=== PATIENT | female | born 1950 | race Caucasian/White ===

== ENCOUNTER 2017-10-29 02:36 | Emergency (ER) | payer MEDICARE ==
[2017-10-29 03:25] LABS: Hematocrit 41.1 % (30.3-42.9); Hemoglobin 14.1 gm/dl (10.1-14.3); Mean Corpuscular HGB Conc 34 % (30-34); Mean Corpuscular Hemoglobin 30 pg (28-32); Mean Corpuscular Volume 88 fl (79-97); Platelet Count 372 K/mm3 (140-440); Red Blood Count 4.68 M/mm3 (3.65-5.03); Red Cell Distribution Width 12.6 % (13.2-15.2)
[2017-10-29 03:48] LABS: Alanine Aminotransferase 13 units/L (7-56); Albumin 4.3 g/dL (3.9-5); BUN/Creatinine Ratio 18; Blood Urea Nitrogen 11 mg/dL (7-17); Calcium 8.9 mg/dL (8.4-10.2); Hemolysis Index 9
[2017-10-29 05:52] LABS: Bacteria,Urine 1+ /HPF (Negative); Bilirubin,Urine NEG (Negative); Blood,Urine MOD (Negative); Color,Urine Straw (Yellow); Mucus,Urine FEW /HPF; Nitrite,Urine NEG (Negative); Urobilinogen,Urine < 2.0 mg/dL (<2.0)
--- NOTE | 2017-10-29 06:31 | Emergency Department Report ---
ED Abdominal Pain HPI - General Chief Complaint: Abdominal Pain Stated Complaint: FEVER, ABD PAIN Time Seen by Provider: 10/29/17 06:04 Source: family Mode of arrival: Ambulatory Limitations: Language Barrier (patient brought family friend at the bedside who provided Barbadian interpretation) - History of Present Illness Initial Comments: Pain is so severe that she is unable to wait for appt on Saturday with surgeon. "She must have it taken out today." MD Complaint: abdominal pain -: week(s) (several weeks) Location: epigastric Radiation: none Migration to: no migration Severity: severe Quality: cramping, aching Consistency: intermittent Improves With: other (Tylenol) Worsens With: nothing Context: other (diagnosed with cholelithiasis referred to surgeon Dr. Holly by PCP Dr. Gaona appt this Saturday, came to ED for to have gallbladder removed) Treatments Prior to Arrival: other (hx of UTI, finished abx 3 days ago) - Related Data Previous Rx's Medication Instructions Recorded Last Taken Type HYDROcodone/APAP 5-325 [[place] 1 each PO Q6HR PRN #15 tablet 10/29/17 Unknown Rx 5/325] Promethazine [Phenergan TAB] 25 mg PO Q6HR PRN #16 tab 10/29/17 Unknown Rx Allergies Allergy/AdvReac Type Severity Reaction Status Date / Time No Known Allergies Allergy Unverified 10/29/17 02:48 ED Review of Systems ROS: Stated complaint: FEVER, ABD PAIN Other details as noted in HPI Comment: All other systems reviewed and negative Constitutional: fever Gastrointestinal: abdominal pain ED Past Medical Hx - Past Medical History Previous Medical History?: Yes Hx Hypertension: Yes Additional medical history: gall stones, high cholesterol - Surgical History Past Surgical History?: Yes Additional Surgical History: stents - Social History Smoking Status: Never Smoker Substance Use Type: None - Medications Home Medications: Home Medications Medication Instructions Recorded Confirmed Last Taken Type HYDROcodone/APAP 5-325 [[place] 1 each PO Q6HR PRN #15 tablet 10/29/17 Unknown Rx 5/325] Promethazine [Phenergan TAB] 25 mg PO Q6HR PRN #16 tab 10/29/17 Unknown Rx ED Physical Exam - General Limitations: Language Barrier (family friend provided Barb[place] interpretation) General appearance: alert, in no apparent distress - Head Head exam: Present: atraumatic, normocephalic - Eye Eye exam: Present: normal appearance - ENT ENT exam: Present: normal orophraynx, mucous membranes moist - Neck Neck exam: Present: normal inspection. Absent: meningismus - Respiratory Respiratory exam: Present: normal lung sounds bilaterally. Absent: respiratory distress, wheezes, rales, rhonchi, stridor - Cardiovascular Cardiovascular Exam: Present: regular rate, normal rhythm, normal heart sounds. Absent: bradycardia, tachycardia, systolic murmur, diastolic murmur, rubs, gallop - GI/Abdominal GI/Abdominal exam: Present: soft, normal bowel sounds. Absent: distended, tenderness, guarding, rebound, rigid - Extremities Exam Extremities exam: Present: normal inspection, full ROM. Absent: tenderness - Back Exam Back exam: Present: normal inspection - Neurological Exam Neurological exam: Present: alert, oriented X3 - Psychiatric Psychiatric exam: Present: normal affect, normal mood - Skin Skin exam: Present: warm, dry, intact, normal color. Absent: rash ED Course Vital Signs 10/29/17 10/29/17 10/29/17 02:44 05:10 05:20 Temperature 98.7 F Pulse Rate 77 Respiratory 17 Rate Blood Pressure 143/79 140/79 140/79 O2 Sat by Pulse 99 96 Oximetry 10/29/17 10/29/17 10/29/17 05:25 05:30 05:46 Temperature Pulse Rate Respiratory 16 Rate Blood Pressure 141/64 141/64 O2 Sat by Pulse 99 100 97 Oximetry 10/29/17 10/29/17 10/29/17 06:00 06:16 06:31 Temperature Pulse Rate Respiratory Rate Blood Pressure 126/69 126/69 114/62 O2 Sat by Pulse 96 95 95 Oximetry 10/29/17 10/29/17 07:26 07:52 Temperature 98.2 F Pulse Rate 71 Respiratory 20 20 Rate Blood Pressure 135/70 O2 Sat by Pulse 98 98 Oximetry ED Medical Decision Making - Lab Data Result diagrams: 10/29/17 03:05 10/29/17 03:05 Vital Signs - 24 hr 10/29/17 10/29/17 10/29/17 02:44 05:10 05:20 Temperature 98.7 F Pulse Rate 77 Respiratory 17 Rate Blood Pressure 143/79 140/79 140/79 O2 Sat by Pulse 99 96 Oximetry 02/20/18 05:25 Temperature Pulse Rate Respiratory 16 Rate Blood Pressure O2 Sat by Pulse 99 Oximetry Laboratory Results - last 24 hr 10/29/17 10/29/17 10/29/17 03:05 03:05 05:18 WBC 10.5 RBC 4.68 Hgb 14.1 Hct 41.1 MCV 88 MCH 30 MCHC 34 RDW 12.6 L Plt Count 372 Lymph # Vp Account Director Sodium 138 Potassium 4.1 Chloride 103.6 Carbon Dioxide 23 Anion Gap 16 BUN 11 Creatinine 0.6 L Estimated GFR > 60 BUN/Creatinine Ratio 18 Glucose 127 H Calcium 8.9 Total Bilirubin 0.50 AST 13 ALT 13 Alkaline Phosphatase 67 Total Protein 7.5 Albumin 4.3 Albumin/Globulin Ratio 1.3 Urine Color Straw Urine Turbidity Clear Urine pH 7.0 Ur Specific [place] 1.005 Urine Protein 30 mg/dl Urine Glucose (UA) Neg Urine Ketones Neg Urine Blood Mod Urine Nitrite Neg Urine Bilirubin Neg Urine Urobilinogen < 2.0 Ur Leukocyte Esterase Tr Urine WBC (Auto) 3.0 Urine RBC (Auto) 2.0 U Epithel Cells (Auto) 2.0 Urine Bacteria (Auto) 1+ Urine Mucus Few Vital Signs - 24 hr 10/29/17 10/29/17 10/29/17 02:44 05:10 05:20 Temperature 98.7 F Pulse Rate 77 Respiratory 17 Rate Blood Pressure 143/79 140/79 140/79 O2 Sat by Pulse 99 96 Oximetry 10/29/17 10/29/17 10/29/17 05:25 05:30 05:46 Temperature Pulse Rate Respiratory 16 Rate Blood Pressure 141/64 141/64 O2 Sat by Pulse 99 100 97 Oximetry 10/29/17 10/29/17 10/29/17 06:00 06:16 06:31 Temperature Pulse Rate Respiratory Rate Blood Pressure 126/69 126/69 114/62 O2 Sat by Pulse 96 95 95 Oximetry 10/29/17 10/29/17 07:26 07:52 Temperature 98.2 F Pulse Rate 71 Respiratory 20 20 Rate Blood Pressure 135/70 O2 Sat by Pulse 98 98 Oximetry - Medical Decision Making Ms. Ruiz presents with biliary colic. US confirmed multiple gallstones. No evidence of cholelithiasis. NO fever, normal WBC, negative Anna's sign. She is currently pain free after Tylenol taken prior to arrival. I consulted Dr. Ohlly general surgeon. He explained that elective surgery would not be performed for several days even if he admitted the patient to hospital. He recommended calling the office for an earlier appt than Saturday. I used language line popcorn machine operator [phone] to explain to Ms. Ruiz why the surgery would be performed today. She did understand. Pain, vomiting and fever reported by patient and family friend. Rx: promethazine and [place] I discussed case with Juan, health care provider in Dr. Gaona's office who referred patient to Dr. Holly. dc'd home in good condition Critical care attestation.: If time is entered above; I have spent that time in minutes in the direct care of this critically ill patient, excluding procedure time. ED Disposition Clinical Impression: Cholelithiasis, Biliary colic Disposition: TO HOME OR SELFCARE Is pt being admited?: No Does the pt Need Aspirin: No Condition: Stable Instructions: Biliary Colic (ED) Prescriptions: HYDROcodone/APAP 5-325 [[place] 5/325] 1 each PO Q6HR PRN #15 tablet PRN Reason: Pain Promethazine [Phenergan TAB] 25 mg PO Q6HR PRN #16 tab PRN Reason: Nausea Referrals: ELIOT HOLLY MD [Staff Physician] - KYLE Time of Disposition: 08:57
[2017-10-29 07:40] LABS: Total Cells Counted 100
[2017-10-29 07:41] LABS: Anisocytosis 1+; Eosinophils % (Manual) 0 % (0.0-4.3); Platelet Estimate Cons
--- NOTE | 2017-10-29 07:57 | Ultrasound Report ---
ULTRASOUND ABDOMEN COMPLETE: TECHNIQUE: Transabdominal ultrasound with color Doppler interrogation. HISTORY: Gallstones, fever, abdominal pain. COMPARISON: none. FINDINGS: LIVER: Normal. BILIARY SYSTEM: There are multiple shadowing gallstones within the gallbladder measuring up to 1.4 cm. There is also moderate sludge present. No evidence for gallbladder wall thickening, distention or surrounding fluid. The CBD measures 3.1 mm. PANCREAS: Normal. SPLEEN: Normal. 7.3 cm. KIDNEYS: The right kidney is slightly echogenic and atrophic measuring 8.6 cm. The left kidney is within normal limits measuring 10.9 cm. No focal renal lesion or hydronephrosis. AORTA/IVC: Normal. ASCITES: None. IMPRESSION: Cholelithiasis. No convincing findings of acute cholecystitis. Slightly atrophic and echogenic right kidney.
[2017-10-29 09:23] VITALS: BP 130/78
== END 2017-10-29 10:43 | disposition home or self-care (01) ==
LOC: ED 02:36
DX: K80.70 Calculus of gallbladder and bile duct without cholecystitis without obstruction (principal); I10 Essential (primary) hypertension; E78.00 Pure hypercholesterolemia, unspecified
CPT/HCPCS: 36415; 76700; 80053; 81001; 85007; 85025

== ENCOUNTER 2017-11-14 07:27 | Day surgery (SDC) | payer MEDICARE, OTHER ==
[~2017-11-14 07:27] MED LIST: ANCEF/STERILE WATER 2 GM/20 ML 2 GM/20 ML SYRINGE IV NR; MARCAINE-EPI 0.5%-1:200,000 INFILTRATI ONE
[2017-11-14] MEDS ORDERED: DILAUDID ONE (08:41)
[2017-11-14] MEDS ORDERED: DIPRIVAN 10 MG/ML IV ONE (08:42)
[2017-11-14] MEDS ORDERED: ZEMURON IV ONE (08:43)
[2017-11-14] MEDS ORDERED: XYLOCAINE MPF 2% ONE (08:43)
[2017-11-14] MEDS ORDERED: MARCAINE 0.5% 0 ML INFILTRATI ONE (09:09)
[2017-11-14] MEDS ORDERED: NACL BACTERIOSTATIC INFILTRATI ONE (09:26)
--- NOTE | 2017-11-14 09:28 | Anesthesia Consultation ---
Anesthesia Consult and Med Hx Date of service: 11/14/17 - Airway Anesthetic Teeth Evaluation: Dentures ROM Head & Neck: Adequate Mental/Hyoid Distance: Adequate Mallampati Class: Class II Intubation Access Assessment: Probably Good - Pulmonary Exam CTA: Yes - Cardiac Exam Cardiac Exam: RRR - Pre-Operative Health Status ASA Pre-Surgery Classification: ASA2 Proposed Anesthetic Plan: General - Cardiovascular System Hx Hypertension: Yes - Central Nervous System Hx Psychiatric Problems: No - Other Systems Hx Alcohol Use: No Hx Substance Use: No Hx Cancer: No - Additional Comments Anesthesia Medical History Comments: Informed consent obtained. KETTY Shields helped translate
--- NOTE | 2017-11-14 09:28 | Anesthesia Day of Surgery ---
Anesthesia Day of Surgery - Day of Surgery Patient Examined: Yes Patient H&P Reviewed: Yes Patient is NPO: Yes Beta Blockers: Yes Cardiac Clearance: Yes
[2017-11-14] MEDS ORDERED: DILAUDID IV PRN (09:29)
[2017-11-14] MEDS ORDERED: ceFAZolin 2 GM in NACL 0.9% 100 ML IV ONE (09:30)
[2017-11-14 09:49] LABS: Basophils % (Auto) 0.6 % (0.0-1.8); Eosinophils # (Auto) 0.1 K/mm3 (0.0-0.4); Eosinophils % (Auto) 0.7 % (0.0-4.3); Hematocrit 43.9 % (30.3-42.9); Hemoglobin 14.7 gm/dl (10.1-14.3); Lymphocytes # (Auto) 2.6 K/mm3 (1.2-5.4); Lymphocytes % (Auto) 32.7 % (13.4-35.0); Mean Corpuscular HGB Conc 34 % (30-34); Mean Corpuscular Hemoglobin 30 pg (28-32); Mean Corpuscular Volume 89 fl (79-97); Monocytes # (Auto) 0.5 K/mm3 (0.0-0.8); Monocytes % (Auto) 6.5 % (0.0-7.3); Platelet Count 356 K/mm3 (140-440); Red Blood Count 4.95 M/mm3 (3.65-5.03)
[2017-11-14] MEDS ORDERED: TRANSDERM-SCOP TD NR (10:00)
[2017-11-14] MEDS ORDERED: VERSED IV NR (10:00)
[2017-11-14] MEDS ORDERED: NACL 0.9% 1000 ML 1,000 ML IV SCH (10:00)
[2017-11-14] MEDS ORDERED: PEPCID IV NR (10:00)
[2017-11-14] MEDS ORDERED: ePHEDrine SULFATE ONE (10:14)
[2017-11-14 10:18] LABS: Albumin 4.6 g/dL (3.9-5); BUN/Creatinine Ratio 17; Blood Urea Nitrogen 10 mg/dL (7-17); Calcium 9.4 mg/dL (8.4-10.2); Hemolysis Index 230
[2017-11-14] MEDS ORDERED: MARCAINE-EPI 0.5%-1:200,000 INFILTRATI ONE ×3 (10:23→10:49)
[2017-11-14 10:24] LABS: Alanine Aminotransferase 19 units/L (7-56)
[2017-11-14] MEDS ORDERED: ZOFRAN ONE (10:30)
[2017-11-14] MEDS ORDERED: ROBINUL ONE (10:31)
[2017-11-14] MEDS ORDERED: NEOSTIGMINE ONE (10:31)
--- NOTE | 2017-11-14 10:59 | Discharge Summary ---
Short Stay Discharge Plan Activity: other (observe x 6 hrs then january d/c if stable. ice chips today. cl liq in am. solid low fat diet in 48hrs. keep dressings dry x 5 days. no lifting over 5 lbs x 2 wks) Weight Bearing Status: Partial Weight Bearing Diet: other Wound: keep clean and dry Additional Instructions: aleve I po q 6-8 hrs prn for breakthrough pain. Call if any abd pain. N or V Follow up with: ELIOT CARO MD [Staff Physician] - 7 Days
--- NOTE | 2017-11-14 11:14 | Operative Report ---
PREOPERATIVE DIAGNOSIS: Gallbladder disease. POSTOPERATIVE DIAGNOSIS: Gallbladder disease. PROCEDURE: Laparoscopic cholecystectomy. SURGEON: Ronnie Holly M.D. ENTERPRISE APPLICATION ARCHITECT: . ANESTHESIA: General. ESTIMATED BLOOD LOSS: Minimal. DRAINS: None. COMPLICATIONS: None. DESCRIPTION OF PROCEDURE: The patient was taken up to the operating room, prepped and draped in usual sterile fashion. A Veress needle was inserted and CO2 insufflation begun. A 5 mm trocar was then inserted and camera inserted. All other trocars were inserted under direct visualization. Gallbladder was then grasped at the fundus and infundibulum and retracted towards the right subphrenic space. Dissection was then carried out along the Calot's triangle. The cystic duct and artery were delineated in their entire course. Both were then doubly clipped and transected. Hook electrocautery was used to dissect the gallbladder from the overlying liver bed. Prior to complete removal, the liver bed was inspected for bleeding and some oozing noted. This was controlled with hook electrocautery. Gallbladder was then completely freed and brought out through the subxiphoid port. This area was inspected for bleeding and noted to be dry. Subxiphoid trocar was then gently reinserted. The entire right upper quadrant of the abdomen was copiously irrigated and suctioned dry. Aspirate was clear, the 5 mm trocars were removed under direct visualization. No bleeding or oozing noted. The subxiphoid trocar was then used to expel the CO2 and the trocar removed. The fascia at this site was closed with a [id number] 2-0 Vicryl suture. The skin at all port sites was closed with subcuticular 4-0 Vicryl. A 0.5% Marcaine with epinephrine was infiltrated over the areas for postoperative pain relief. The patient tolerated the procedure well and left the OR in stable condition. [facility]# [id number] DONNA/NESHA
--- NOTE | 2017-11-14 11:53 | Progress Note ---
Assessment and Plan - Patient Problems (1) S/P laparoscopic cholecystectomy Current Visit: Yes Status: Acute Plan to address problem: Patient was evaluated in office and "cleared" for surgery.Presently stable post OP in recovery. Discussed with and RN. (2) Essential hypertension Current Visit: Yes Status: Acute (3) Serum potassium elevated Current Visit: Yes Status: Acute Plan to address problem: serum potassium mildly elevated with normal renal function and on no K+ supplementation or potassium retaining meds.Awaiting f/u K+ level.If comes back normal,she can go home. Subjective Date of service: 11/14/17 Interval history: s/p laparoscopic surgery in recovery,stable,K+ was elavated,hence consultation by for adjustment of meds,repeat BMP pending. Objective Vital Signs Temp Pulse Resp BP Pulse Ox 11/14/17 11:37 23 11/14/17 11:30 63 23 123/63 100 11/14/17 11:15 72 19 126/70 97 11/14/17 11:10 71 25 H 130/70 98 11/14/17 11:05 98.5 F 71 24 125/70 99 11/14/17 09:55 98.1 F 67 20 153/81 97 11/14/17 08:48 98.1 F 67 20 153/81 97 - Physical Examination General: Appears Well HEENT: Positive: PERRL Neck: Positive: neck supple Cardiac: Positive: Reg Rate and Rhythm Lungs: Positive: clear to auscultation Neuro: Positive: Grossly Intact Abdomen: Positive: Unremarkable (small fresh scar over abdomen from laparoscopy. ) - Labs and Meds Cardiac Enzymes 11/14/17 Range/Units 09:30 AST 32 (5-40) units/L CBC 11/14/17 Range/Units 09:30 WBC 7.9 (4.5-11.0) K/mm3 RBC 4.95 (3.65-5.03) M/mm3 Hgb 14.7 H (10.1-14.3) gm/dl Hct 43.9 H (30.3-42.9) % Plt Count 356 (140-440) K/mm3 Lymph # 2.6 (1.2-5.4) K/mm3 [place] # 0.5 (0.0-0.8) K/mm3 Eos # 0.1 (0.0-0.4) K/mm3 Baso # 0.0 (0.0-0.1) K/mm3 Comprehensive Metabolic Panel 11/14/17 Range/Units 09:30 Sodium 136 L (137-145) mmol/L Potassium 5.8 H (3.6-5.0) mmol/L Chloride 96.9 L (98-107) mmol/L Carbon Dioxide 26 (22-30) mmol/L BUN 10 (7-17) mg/dL Creatinine 0.6 L (0.7-1.2) mg/dL Glucose 110 H (65-100) mg/dL Calcium 9.4 (8.4-10.2) mg/dL AST 32 (5-40) units/L ALT 19 (7-56) units/L Alkaline Phosphatase 70 (35-129) units/L Total Protein 8.6 H (6.3-8.2) g/dL Albumin 4.6 (3.9-5) g/dL - Telemetry EKG Rhythm: Sinus Rhythm
[2017-11-14 12:01] LABS: BUN/Creatinine Ratio 14; Blood Urea Nitrogen 10 mg/dL (7-17); Calcium 8.4 mg/dL (8.4-10.2); Hemolysis Index 15
--- NOTE | 2017-11-14 14:20 | Post Anesthesia Evaluation ---
- Post Anesthesia Evaluation Patient Participated: Yes Airway Patent: Yes Stable Respiratory Function: Yes Nausea/Vomiting: No Temp > 96.8F: Yes Pain Manageable: Yes Adequeate Hydration: Yes Anesthesia Complications: No
[2017-11-14] MEDS ORDERED: NORCO 5/325 PO ONE (17:10)
[2017-11-14 17:12] VITALS: BP 113/66
== END 2017-11-14 17:25 | disposition home or self-care (01) ==
LOC: OR 07:27
PROVIDERS: ATTEND Surgery
DX: K80.10 Calculus of gallbladder with chronic cholecystitis without obstruction (principal); E87.5 Hyperkalemia; E78.00 Pure hypercholesterolemia, unspecified; I10 Essential (primary) hypertension
CPT/HCPCS: 36415; 47562; 80048; 80053; 82150; 85025; 88304; J0690; J1170; J2405; J2704; J2710; J7030

== ENCOUNTER 2017-11-27 14:51 | Emergency (ER) | payer OTHER ==
[2017-11-27 14:59] VITALS: BP 137/71
[2017-11-27 15:31] LABS: Basophils # (Auto) 0.1 K/mm3 (0.0-0.1); Basophils % (Auto) 0.8 % (0.0-1.8); Eosinophils # (Auto) 0.1 K/mm3 (0.0-0.4); Eosinophils % (Auto) 0.9 % (0.0-4.3); Hemoglobin 14.2 gm/dl (10.1-14.3); Lymphocytes # (Auto) 3.7 K/mm3 (1.2-5.4); Lymphocytes % (Auto) 44.1 % (13.4-35.0); Mean Corpuscular HGB Conc 34 % (30-34); Mean Corpuscular Hemoglobin 30 pg (28-32); Mean Corpuscular Volume 90 fl (79-97); Monocytes # (Auto) 0.5 K/mm3 (0.0-0.8); Monocytes % (Auto) 5.9 % (0.0-7.3); Platelet Count 338 K/mm3 (140-440); Red Blood Count 4.68 M/mm3 (3.65-5.03); Red Cell Distribution Width 12.7 % (13.2-15.2)
[2017-11-27 15:44] LABS: Alanine Aminotransferase 16 units/L (7-56); Albumin 4.5 g/dL (3.9-5); BUN/Creatinine Ratio 25; Blood Urea Nitrogen 15 mg/dL (7-17); Calcium 9.6 mg/dL (8.4-10.2); Hemolysis Index 19
--- NOTE | 2017-11-27 17:31 | Emergency Department Report ---
ED Abdominal Pain HPI - General Chief Complaint: Abdominal Pain Stated Complaint: FEVER/WOUND SWOLLEN Time Seen by Provider: 11/27/17 17:21 Source: patient Mode of arrival: Ambulatory Limitations: Language Barrier - History of Present Illness Initial Comments: 67-year-old female status post laparoscopic cholecystectomy November 14 saw surgeon today he wanted her to come to the ED for worsening abdominal pain possible fever he is requesting laboratory studies and CT abdomen patient arrives awake alert oriented 3 and nontoxic, no other c/o, dr mai sent to ed for furhter eval, no uti ssx, no coughno cp, wound sites look healed, no reddness or warmth , no d/c here to further eval postop pain patient speaks no Montenegrin friend is in the room speaks broken Montenegrin but does seem to verbalize understanding MD Complaint: abdominal pain -: Gradual, days(s), unknown Location: diffuse Radiation: none Migration to: no migration Quality: cramping Associated Symptoms: denies: nausea, vomiting, diarrhea, fever, chills, constipation, dysuria, hematemesis, hematochezia, melena, hematuria, anorexia, syncope - Related Data Home Medications Medication Instructions Recorded Confirmed Last Taken Atenolol 50 mg PO DAILY 11/13/17 11/14/17 11/14/17 Omeprazole 40 mg PO DAILY 11/13/17 11/13/17 Unknown amLODIPine [Norvasc] 5 mg PO DAILY 11/13/17 11/14/17 11/14/17 Previous Rx's Medication Instructions Recorded Last Taken Type HYDROcodone/APAP 5-325 [[place] 1 each PO Q6HR PRN #15 tablet 10/29/17 Unknown Rx 5/325] Promethazine [Phenergan TAB] 25 mg PO Q6HR PRN #16 tab 10/29/17 Unknown Rx HYDROcodone/APAP 5-325 [[place] 1 each PO Q4HR PRN #30 tablet 11/14/17 Unknown Rx 5/325] Allergies Allergy/AdvReac Type Severity Reaction Status Date / Time No Known Allergies Allergy Verified 11/13/17 13:23 ED Review of Systems ROS: Stated complaint: FEVER/WOUND SWOLLEN Other details as noted in HPI Comment: All other systems reviewed and negative Constitutional: denies: diaphoresis, fever, malaise Eyes: denies: eye discharge, vision change ENT: denies: dental pain, hearing loss, epistaxis Respiratory: denies: orthopnea, shortness of breath, SOB with exertion, SOB at rest, stridor, wheezing Cardiovascular: denies: chest pain, palpitations, dyspnea on exertion, orthopnea , edema, syncope, paroxysmal nocturnal dyspnea Gastrointestinal: abdominal pain. denies: nausea, vomiting, diarrhea, constipation, hematemesis, melena, hematochezia Genitourinary: denies: urgency, dysuria, frequency, hematuria, discharge, abnormal menses, dyspareunia Neurological: denies: headache, weakness, numbness, paresthesias, confusion, abnormal gait, vertigo ED Past Medical Hx - Past Medical History Hx Hypertension: Yes Hx Arthritis: Yes Hx HIV: No Additional medical history: gall stones, high cholesterol - Surgical History Past Surgical History?: Yes Hx Cholecystectomy: Yes Additional Surgical History: stents - Social History Smoking Status: Never Smoker Substance Use Type: None - Medications Home Medications: Home Medications Medication Instructions Recorded Confirmed Last Taken Type HYDROcodone/APAP 5-325 [[place] 1 each PO Q6HR PRN #15 tablet 10/29/17 11/13/17 Unknown Rx 5/325] Promethazine [Phenergan TAB] 25 mg PO Q6HR PRN #16 tab 10/29/17 11/13/17 Unknown Rx Atenolol 50 mg PO DAILY 11/13/17 11/14/17 11/14/17 History Omeprazole 40 mg PO DAILY 11/13/17 11/13/17 Unknown History amLODIPine [Norvasc] 5 mg PO DAILY 11/13/17 11/14/17 11/14/17 History HYDROcodone/APAP 5-325 [[place] 1 each PO Q4HR PRN #30 tablet 11/14/17 Unknown Rx 5/325] ED Physical Exam - General Limitations: Language Barrier General appearance: alert - Head Head exam: Present: atraumatic, normocephalic - Eye Eye exam: Present: PERRL, EOMI - ENT ENT exam: Present: normal exam, normal orophraynx - Neck Neck exam: Present: normal inspection. Absent: tenderness, meningismus - Respiratory Respiratory exam: Present: normal lung sounds bilaterally. Absent: respiratory distress, wheezes, rales, rhonchi, stridor, accessory muscle use, prolonged expiratory - Cardiovascular Cardiovascular Exam: Present: regular rate, normal rhythm, normal heart sounds - GI/Abdominal GI/Abdominal exam: Present: soft. Absent: tenderness, guarding, rebound, rigid , mass, pulsatile mass - Extremities Exam Extremities exam: Present: normal inspection, normal capillary refill. Absent: pedal edema, joint swelling, calf tenderness - Back Exam Back exam: Present: normal inspection. Absent: CVA tenderness (R), CVA tenderness (L), muscle spasm, paraspinal tenderness, vertebral tenderness - Neurological Exam Neurological exam: Present: alert, oriented X3, CN II-XII intact. Absent: motor sensory deficit ED Course Vital Signs 11/27/17 14:56 Temperature 98.5 F Pulse Rate 84 Respiratory 16 Rate Blood Pressure 137/71 O2 Sat by Pulse 99 Oximetry ED Medical Decision Making - Lab Data Result diagrams: 11/27/17 15:12 11/27/17 15:12 - Medical Decision Making Patient has a urinary symptoms she has no cough no chest complaints. She has no calf pain or swelling no shortness of breath. CT shows nothing acute it was IV and oral contrast read as negative. Laboratory studies are unremarkable case was discussed with Dr. MONTERROSO recommends that he will see her on Saturday this does appear to be postoperative pain without an acute abdomen no emergency is identified at this time she is stable for outpatient follow-up Critical care attestation.: If time is entered above; I have spent that time in minutes in the direct care of this critically ill patient, excluding procedure time. ED Disposition Clinical Impression: Post-op pain Disposition: DC-01 TO HOME OR SELFCARE Is pt being admited?: No Condition: Stable Instructions: Abdominal Pain (ED) Additional Instructions: See her surgeon Saturday return if new alarming symptoms or call 911 Referrals: ELIOT CARO MD [Staff Physician] - 3-5 Days Time of Disposition: 20:42
--- NOTE | 2017-11-27 18:34 | Cat Scan Report ---
FINAL REPORT EXAM: CT ABDOMEN PELVIS W CON HISTORY: pain, s/p removal of GB TECHNIQUE: CT abdomen and pelvis with intravenous contrast PRIORS: None. FINDINGS: No acute abnormality identified in the lung bases. No focal abnormality identified within the liver parenchyma. Patient status post cholecystectomy. Surgical clips present in the gallbladder fossa with mildly stranded appearance compatible with expected postoperative change no evidence for abscess or biloma the common duct is normal in diameter. The spleen demonstrates normal size and attenuation. No pancreatic abnormalities seen. The kidneys demonstrate symmetric contrast enhancement. No evidence of hydronephrosis. The adrenal glands are unremarkable Abdominal aorta is normal in caliber. No pathologically enlarged lymph nodes are identified. No signs of free fluid or free air No evidence of small bowel dilatation. Colon is nondistended. No pericolonic inflammatory change. Urinary bladder is unremarkable. IMPRESSION: Status post cholecystectomy with expected postoperative findings. No acute abnormality identified
== END 2017-11-27 20:47 | disposition home or self-care (01) ==
LOC: ED 14:51
DX: G89.18 Other acute postprocedural pain (principal); I10 Essential (primary) hypertension; M19.90 Unspecified osteoarthritis, unspecified site; E78.00 Pure hypercholesterolemia, unspecified; Z90.49 Acquired absence of other specified parts of digestive tract
CPT/HCPCS: 36415; 74177; 80053; 82150; 85025; 99284; Q9967

== ENCOUNTER 2020-06-20 09:39 | Emergency (ER) | payer SELFPAY ==
[2020-06-20 10:04] VITALS: BP 143/76
== END 2020-06-20 23:05 | disposition left against medical advice (07) ==
LOC: ED 09:39
DX: R06.02 Shortness of breath (principal); Z53.21 Procedure and treatment not carried out due to patient leaving prior to being seen by health care provider

== ENCOUNTER 2020-06-22 03:23 | Emergency (ER) | payer OTHER ==
[2020-06-22] MEDS ORDERED: ASPIRIN 325 MG TAB PO ONE (04:33)
--- NOTE | 2020-06-22 05:34 | XRay Report ---
CHEST 1 VIEW INDICATION: Chest Pain. COMPARISON: 07/18/2018 FINDINGS: Support devices: None. Heart: Normal. Lungs/Pleura: No acute pulmonary or pleural findings. IMPRESSION: 1. No acute findings. Signer Name: Sarwat Daniels MD Signed: 06/22/2020 5:29 AM Workstation Name: [id number]
[2020-06-22 05:37] LABS: Basophils # (Auto) 0.1 K/mm3 (0.0-0.1); Basophils % (Auto) 0.8 % (0.0-1.8); Eosinophils # (Auto) 0.1 K/mm3 (0.0-0.4); Eosinophils % (Auto) 0.6 % (0.0-4.3); Hematocrit 40.4 % (30.3-42.9); Hemoglobin 13.9 gm/dl (10.1-14.3); Lymphocytes # (Auto) 2.9 K/mm3 (1.2-5.4); Lymphocytes % (Auto) 30.1 % (13.4-35.0); Mean Corpuscular HGB Conc 34 % (30-34); Mean Corpuscular Volume 91 fl (79-97); Monocytes # (Auto) 0.6 K/mm3 (0.0-0.8); Monocytes % (Auto) 5.8 % (0.0-7.3); Platelet Count 355 K/mm3 (140-440); Red Blood Count 4.44 M/mm3 (3.65-5.03); Red Cell Distribution Width 12.5 % (13.2-15.2)
[2020-06-22 05:50] LABS: Blood Urea Nitrogen 18 mg/dL (7-17); Calcium 9.4 mg/dL (8.4-10.2); Hemolysis Index 18
[2020-06-22 06:17] LABS: BUN/Creatinine Ratio 30
--- NOTE | 2020-06-22 10:22 | Emergency Department Report ---
ED Chest Pain HPI - General Chief Complaint: Chest Pain Stated Complaint: CHEST PAIN Time Seen by Provider: 06/22/20 09:14 Source: EMS Mode of arrival: Ambulatory Limitations: Language Barrier - History of Present Illness Initial Comments: 70-year-old female presents to ED with complaint of chest pain. Patient states she awoke early this morning with palpitations and substernal chest pain radiating into the right arm. Patient characterizes the pain as a squeezing pain. Patient states she took her blood pressure medication at that time. She denies any nausea or vomiting, shortness of breath, fever, cough, leg swelling. Patient states the pain lasted for approximately 15 minutes. She denies any chest pain at this time. She reports she was recently seen by cardiology and wore a Holter monitor. Patient is followed by Sugar Lepe MD Complaint: chest pain -: This morning Onset: awoke with symptoms Pain Location: substernal Pain Radiation: RUE Severity: mild Quality: squeezing Consistency: now resolved Improves With: nothing Worsens With: nothing re: denies: nausea, vomting, diaphoresis, dyspnea Other Symptoms: denies: cough, fever, leg swelling - Related Data Home Medications Medication Instructions Recorded Confirmed Last Taken Omeprazole 40 mg PO DAILY 11/13/17 07/18/18 Unknown Cholecalciferol Vit D3 [Vitamin D3 5,000 unit PO QWEEK 07/18/18 07/18/18 Unknown 1,000 UNIT TAB] Previous Rx's Medication Instructions Recorded Last Taken Type Aspirin [Aspirin BABY CHEW TAB] 81 mg PO QDAY #30 tab.chew 07/21/18 Unknown Rx AtorvaSTATin [Lipitor] 40 mg PO QHS #30 tablet 07/21/18 Unknown Rx Metoprolol [Lopressor TAB] 25 mg PO DAILY #30 tablet 07/21/18 Unknown Rx amLODIPine 5 mg PO DAILY #30 tablet 07/21/18 Unknown Rx hydrOXYzine HCL [Hydroxyzine HCl] 25 mg PO DAILY #30 tablet 07/21/18 Unknown Rx Allergies Allergy/AdvReac Type Severity Reaction Status Date / Time No Known Allergies Allergy Verified 11/13/17 13:23 Heart Score - HEART Score History: Slightly suspicious EKG: Normal Age: > 65 Risk factors: No known risk factors Troponin: < normal limit HEART Score: 2 ED Review of Systems ROS: Stated complaint: CHEST PAIN Other details as noted in HPI Comment: All other systems reviewed and negative Constitutional: denies: chills, fever Respiratory: denies: cough, shortness of breath Cardiovascular: chest pain, palpitations Gastrointestinal: denies: nausea, vomiting Musculoskeletal: other (Denies leg pain or swelling) ED Past Medical Hx - Past Medical History Hx Hypertension: Yes Hx Arthritis: Yes Hx HIV: No Additional medical history: gall stones, high cholesterol - Surgical History Hx Cholecystectomy: Yes Additional Surgical History: stents - Social History Smoking Status: Never Smoker Substance Use Type: None - Medications Home Medications: Home Medications Medication Instructions Recorded Confirmed Last Taken Type Omeprazole 40 mg PO DAILY 11/13/17 07/18/18 Unknown History Cholecalciferol Vit D3 [Vitamin D3 5,000 unit PO QWEEK 07/18/18 07/18/18 Unknown History 1,000 UNIT TAB] Aspirin [Aspirin BABY CHEW TAB] 81 mg PO QDAY #30 tab.chew 07/21/18 Unknown Rx AtorvaSTATin [Lipitor] 40 mg PO QHS #30 tablet 07/21/18 Unknown Rx Metoprolol [Lopressor TAB] 25 mg PO DAILY #30 tablet 07/21/18 Unknown Rx amLODIPine 5 mg PO DAILY #30 tablet 07/21/18 Unknown Rx hydrOXYzine HCL [Hydroxyzine HCl] 25 mg PO DAILY #30 tablet 07/21/18 Unknown Rx ED Physical Exam - General Limitations: Language Barrier General appearance: alert, in no apparent distress - Head Head exam: Present: atraumatic, normocephalic - Eye Eye exam: Present: normal appearance, EOMI - ENT ENT exam: Present: mucous membranes moist - Neck Neck exam: Present: normal inspection - Respiratory Respiratory exam: Present: normal lung sounds bilaterally. Absent: respiratory distress - Cardiovascular Cardiovascular Exam: Present: regular rate, normal rhythm - GI/Abdominal GI/Abdominal exam: Present: soft. Absent: distended, tenderness - Extremities Exam Extremities exam: Present: normal inspection. Absent: pedal edema, calf tenderness - Neurological Exam Neurological exam: Present: alert, oriented X3 - Psychiatric Psychiatric exam: Present: normal affect, normal mood - Skin Skin exam: Present: warm, dry, intact, normal color ED Course Vital Signs 06/22/20 06/22/20 06/22/20 03:55 09:07 10:00 Temperature 98.4 F Pulse Rate 71 72 69 Respiratory 16 22 Rate Blood Pressure 135/68 161/76 154/70 Blood Pressure [Right] O2 Sat by Pulse 94 99 96 Oximetry 06/22/20 06/22/20 06/22/20 10:31 11:00 12:04 Temperature Pulse Rate 69 73 Respiratory 16 21 Rate Blood Pressure 121/66 130/76 125/73 Blood Pressure [Right] O2 Sat by Pulse 94 96 97 Oximetry 06/22/20 12:30 Temperature Pulse Rate 69 Respiratory 14 Rate Blood Pressure Blood Pressure 124/70 [Right] O2 Sat by Pulse 99 Oximetry - Consultations Consultation #1: 06/22/20 10:15 Spoke w/ Jose Mesa. Will come down and see the patient. 06/22/20 10:57 Patient seen and evaluated by albert Garcia and Dr Ledesma. Patient recently underwent stress testing 2 weeks ago which was normal. Patient has a follow-up appointment on tomorrow. Patient urged to keep that appointment. She will be seen in the office tomorrow. Patient can be discharged home. ED Medical Decision Making - Lab Data Result diagrams: 06/22/20 04:50 06/22/20 04:50 - EKG Data -: EKG Interpreted by Hi EKG shows normal: sinus rhythm, axis, intervals, QRS complexes, ST-T waves Rate: normal - EKG Data Interpretation: no acute changes - Radiology Data Radiology results: report reviewed, image reviewed Critical care attestation.: If time is entered above; I have spent that time in minutes in the direct care of this critically ill patient, excluding procedure time. ED Disposition Clinical Impression: Chest pain Disposition: DC-01 TO HOME OR SELFCARE Is pt being admited?: No Condition: Stable Instructions: Chest Pain (ED) Referrals: MARCOS LEDESMA MD [Staff Physician] - 06/23/20 Forms: Work/School Release Form(ED) Time of Disposition: 10:59
[2020-06-22 12:47] VITALS: BP 124/70
== END 2020-06-22 12:30 | disposition home or self-care (01) ==
LOC: ED 03:23
DX: R07.89 Other chest pain (principal); R00.2 Palpitations; M79.601 Pain in right arm; I10 Essential (primary) hypertension; M19.91 Primary osteoarthritis, unspecified site; Z90.49 Acquired absence of other specified parts of digestive tract; Z98.890 Other specified postprocedural states; Z79.899 Other long term (current) drug therapy
CPT/HCPCS: 36415; 71045; 80048; 84484; 85025; 93005